=== PATIENT | female | born 1945 | race Caucasian/White ===

== ENCOUNTER → 2016-05-31 | Outpatient (CLI) | payer OTHER ==
[~2016-05-31] MED LIST: ASCAUNK; ASPCH81X PO; CHOL100010 PO; CLB100 PO; FSMD/70 PO; GABA-113 PO; MULTTAB58 PO
--- NOTE | 2016-05-31 11:01 | DIAGNOSTIC IMAGING REPORT ---
LEG LENGTH STUDY (WHOLE LEG) CLINICAL HISTORY: Leg length discrepancy. Lumbago. COMPARISON STUDY: No previous studies for comparison. FINDINGS: No significant osseous abnormalities are identified. The right femur measures 46.9 cm and the left measures 46.6 cm. The right tibia measures 36.4 cm and the left tibia measures 36.1 cm. IMPRESSION: Right femur length of 46.9 cm and left femur length of 46.6 cm. Right tibia length of 36.4 cm and left tibia length of 36.1 cm. Total right leg length of 83.3 cm and total left leg length of 82.7 cm. Electronically signed by: Spencer Paulson M.D. 05/31/2016 11:00 AM Dictated Date/Time: 05/31/2016 10:49 AM
== END | disposition home or self-care (01) ==
LOC: C.RADBC 10:14
PROVIDERS: ATTEND Anesthesiology
DX: M54.5 Low back pain (principal); M21.769 Unequal limb length (acquired), unspecified tibia and fibula